=== PATIENT | female | born 1995 | race Caucasian/White ===

== ENCOUNTER 2017-04-13 14:15 | Emergency (ER) | payer OTHER ==
[2017-04-13 14:23] VITALS: O2SAT 98
--- NOTE | 2017-04-13 14:25 | EDPHY ---
H & P Stated Complaint: hit head 04/11 Time Seen by Provider: 04/13/17 14:24 - Personal History LMP (Females 10-55): 8-14 Days Ago Current Tetanus/Diphtheria Vaccine: Yes Current Tetanus Diphtheria and Acellular Pertussis (TDAP): Yes - Medical/Surgical History Hx Asthma: No Hx Chronic Respiratory Disease: No Hx Diabetes: No Hx Cardiac Disease: No Hx Renal Disease: No Hx Cirrhosis: No Hx Alcoholism: No Hx HIV/AIDS: No Hx Splenectomy or Spleen Trauma: No Other PMH: wisdom teeth - Social History Smoking Status: Never smoked Constitutional: Initial Vital Signs Temperature (C) 36.6 C 04/13/17 14:20 Heart Rate 79 04/13/17 14:20 Respiratory Rate 16 04/13/17 14:20 Blood Pressure 119/73 04/13/17 14:20 O2 Sat (%) 98 04/13/17 14:20 O2 Delivery Mode Room Air Allergies/Adverse Reactions: No Known Allergies Allergy (Unverified 04/13/17 14:18) Home Medications: Medication Instructions Recorded Apri 28 Day Tablet 04/13/17 Medical Decision Making ED Course/Re-evaluation: CHIEF COMPLAINT: Head injury HISTORY OF PRESENT ILLNESS: The patient is a 21 y/o female complaining of a headache after falling down several stairs Friday night, 2 days ago. She was drinking alcohol when she slipped down several stairs and hit her head; her boyfriend witnessed the fall. After the fall she was talking about how her head hurt; however she cannot remember this due to drinking alcohol. The next day she vomited once and her head still hurt; but she believes this could be due to drinking. Today she still has pain in the back of her head. Denies sensitivity to light, difficulty walking, neck or back injury. Denies chest pain, shortness of breath, fevers, urinary or bowel complaints, paresthesias, numbness or other pertinent symptoms. REVIEW OF SYSTEMS: A 10 point review of systems was performed and is negative with the exception of the elements mentioned in the history of present illness. PHYSICAL EXAM: HR, BP, O2 Sat, RR. Temp noted General Appearance: Alert, well hydrated, appropriate, and non-toxic appearing. Head: Atraumatic without scalp tenderness or obvious injury Eyes: Pupils equal, round, reactive to light and accommodation, EOMI, no trauma , no injection. Ears: Clear bilaterally, no perforation, normal landmarks Nose: Atraumatic, no rhinorrhea, clear. Throat: Mucus membranes moist. Neck: Supple, nontender, no lymphadenopathy. Respiratory: No retractions, no distress, no wheezes, and no accessory muscle use. Lungs are clear to auscultation bilaterally. Cardiovascular: Regular rate and rhythm, no murmurs, rubs, or gallops. Good capillary refill all extremities. Gastrointestinal: Abdomen is soft, nontender, non-distended, no masses, no rebound, no guarding, no peritoneal signs. Musculoskeletal: Normal active ROM of all extremities, atraumatic. Neurological: Alert, appropriate, and interactive. Nonfocal neuro. Skin: No rashes, good turgor, no nodules on palpation. Past medical history: Denies Past surgical history: [place] teeth extraction Family history: Denies Social history: Friend at bedside, student at , lives in [place] DIFFERENTIAL DIAGNOSIS: The differential diagnosis for the patient's head injury included but was not limited to concussion, skull fracture, intra-parenchymal contusion, subarachnoid , subdural and epidural hematoma. MEDICAL DECISION MAKING: The patient is a 21 y/o female presenting with a headache secondary to slipping down several stair 2 days ago. On exam she has no scalp trauma or neurological deficits. Denies loss of consciousness. Patient does not meet [place] CT criteria. Reassessed patient and discussed plan to not do imaging studies. Patient's symptoms are consistent with post concussion syndrome. Patient is comfortable with this plan. I have referred her to Dr. Shah if her symptoms do not improve. Strict cognitive rest and return precautions provided; patient is comfortable with this plan. Departure - Departure Disposition: Home, Routine, Self-Care Clinical Impression: Post concussion syndrome Concussion Qualifiers: Encounter type: initial encounter Loss of consciousness presence/duration: without LOC Qualified Code(s): S06.0X0A - Concussion without loss of consciousness, initial encounter Condition: Good Instructions: Concussion (ED), Post Concussion Syndrome (ED) Additional Instructions: 1. Apply ice to sore areas and take 600mg ibuprofen every 6-8 hours or 650mg Tylenol every 4-6 hours for pain for the next few days. 2. Cognitive rest while symptoms are present. Avoid screen time including TV, phones, and computers until symptoms improve. 3. Physical rest while symptoms are present. Avoid any activities that could put you at further risk for a head injury until your symptoms resolve including contact sports, bicycling, etc. This may be 2 weeks or longer. 4. Follow up with Dr. Shah, head injury specialist, for unimproved symptoms over the next 10-14 days. It's not uncommon to experience fatigue, mood swings, and difficulty concentrating with concussions. 5. Return to the ED for severe headache, weakness or numbness on one side of your body, vision changes, or other worsening of condition. Referrals: DR GUZMAN [Other] - As per Instructions Missy Shah MD [Medical Doctor] - As per Instructions Report Scribed for: Tong Reynoso Report Scribed by: Bouchra Candelario Date of Report: 04/13/17 Time of Report: 14:25
[2017-04-13 14:44] VITALS: BP 120/82; PULSE 78; RESP 18; TEMP 98.6
== END 2017-04-13 14:44 | disposition home or self-care (01) ==
DX: S06.0X0A Concussion without loss of consciousness, initial encounter (principal); F07.81 Postconcussional syndrome; G44.309 Post-traumatic headache, unspecified, not intractable; W10.9XXA Fall (on) (from) unspecified stairs and steps, initial encounter